=== PATIENT | male | born 1970 | race Caucasian/White ===

== ENCOUNTER 2021-05-20 17:39 | Emergency (ER) | payer OTHER ==
[~2021-05-20] VITALS: Ht 170.2 cm; Wt 77.3 kg
[2021-05-20] MEDS ORDERED: SODIUM CHLORIDE 0.9% 250 ML IRRIG SOLUTION BOTTLE IRRIG ONE (19:45)
[2021-05-20] MEDS ORDERED: LIDOCAINE 1% 10 ML VIAL ID ONE (19:45)
[2021-05-20] MEDS ORDERED: PERTUSS(ACELL),DIPH,TET VAC/PF 0.5 ML SYRINGE IM. ONE (19:45)
[2021-05-20 20:07] VITALS: BP 131/82
[2021-05-20] MEDS ORDERED: BACITRACIN 0.9 GM PACKET OINTMENT TP ONE (20:30)
== END 2021-05-20 20:29 | disposition home or self-care (01) ==
LOC: EMS 17:40
DX: S51.811A Laceration without foreign body of right forearm, initial encounter (principal); W25.XXXA Contact with sharp glass, initial encounter; Y93.89 Activity, other specified; Y92.89 Other specified places as the place of occurrence of the external cause; Y99.8 Other external cause status
CPT/HCPCS: 12002; 90471; 90715; 99283; J3490

== ENCOUNTER 2021-05-29 12:32 | Emergency (ER) | payer OTHER ==
[~2021-05-29] VITALS: Ht 167.6 cm; Wt 79.5 kg
[2021-05-29 13:30] VITALS: BP 135/85
== END 2021-05-29 13:30 | disposition home or self-care (01) ==
LOC: EMS 12:35
DX: S51.811D Laceration without foreign body of right forearm, subsequent encounter (principal); Z48.02 Encounter for removal of sutures; W45.8XXD Other foreign body or object entering through skin, subsequent encounter
CPT/HCPCS: 99282; Z7502